=== PATIENT | male | born 1980 | race African-American/Black ===

== ENCOUNTER 2019-01-07 02:00 | Emergency (ER) | payer OTHER | END 2019-01-07 03:12 | disposition home or self-care (01) | LOC: JER 02:00 ==

== ENCOUNTER 2020-02-28 01:08 | Emergency (ER) | payer OTHER ==
[2020-02-28 01:28] VITALS: BP 119/62; PULSE 89; TEMP 98; BMI 32.1
--- NOTE | 2020-02-28 01:50 | PDOC ---
Attending Attestation - Resident Resident Name: Luciano Vital - ED Attending Attestation I have performed the following: I have examined & evaluated the patient, The case was reviewed & discussed with the resident, I agree w/resident's findings & plan - HPI HPI: 02/28/20 02:11 Pt injured right foot pain after he landed on it hard when he was going up the stairs; around 6PM. He was walking around barefoot in his home. Now with right foot pain lateral aspect. Pt was able to walk on it, but when he woke up, he found that he was unable to move the foot and that it was painful. wrapped it and placed a lidocaine patch on it. Pt comes because he fears that it is broken - Physicial Exam PE: 02/28/20 02:50 Pt has normal rest of exam. Agree with resident exam. Pt has swelling at the dorsal aspect of the right foot around the 3rd, 4th and 5th metatarsals.. {Pt has no pain with flexion of toes; some pain with extension of toes. Pain with inversion of the foot; no pain with eversion of th e foot. Pt has no plantar pain Pt has good pulses - Medical Decision Making 02/28/20 02:12 XRAY; collins dressing and home with crutches. Pt will follow with ortho as needed 02/28/20 02:52 Pt doesn't want crutches because he now knows that it isn;t broken. Pt feels he can walk on it. Discharge - Discharge Information Problems reviewed: Yes Clinical Impression/Diagnosis: Foot pain, right Condition: Stable Disposition: HOME - Follow up/Referral Referrals: Shady Roper DO [Staff Physician] - Roge Farmer DO [Staff Physician] - - Patient Discharge Instructions Patient Printed Discharge Instructions: DI for Foot Pain Additional Instructions: Please rest and ice your foot as much as possible. Please take Tylenol as needed for your pain (follow instructions on the package). Please make a follow up appointment with an orthopedist (Dr. Roper/Dr. Farmer, referral provided here). If you experience any new, worsening, or concerning symptoms, including worsening foot pain, swelling, numbness, tingling or any other concerns, please return to the emergency room. - Post Discharge Activity
--- NOTE | 2020-02-28 02:03 | PDOC ---
History of Present Illness - General Chief Complaint: Injury Stated Complaint: FOOT INJURY Time Seen by Provider: 02/28/20 01:44 - History of Present Illness Initial Comments: Davion Naranjo is a 39 y/o male with non contributory PMH presenting today after he tripped going up the stairs and hit the sole of his right foot on the edge of the steps at around 6pm earlier tonight. No fall/LOC/head trauma. Pt reports that he was able to ambulate and bear weight initially but a few hours later at around 9pm started feeling worsening pain with increased difficulty bearing weight. No numbness/tingling. No burning. No loss of sensation. His significant other wrapped up his leg with a lidoderm patch and an PHILLIP bandage. Past History - Medical History Allergies/Adverse Reactions: Allergies Allergy/AdvReac Type Severity Reaction Status Date / Time No Known Allergies Allergy Verified 02/28/20 01:28 Home Medications: Ambulatory Orders NK [No Known Home Medication] 06/12/16 COPD: No - Psycho-Social/Smoking History Smoking History: Current every day smoker Have you smoked in the past 12 months: Yes Information on smoking cessation initiated: No - Substance Abuse Hx (Audit-C & DAST Scrn) How often the patient has a drink containing alcohol: Monthly or less Score: In Men: 4 or > Positive; In Women: 3 or > Positive: 1 Screen Result (Pos requires Nsg. Audit-10AR): Negative Review of Systems - Review of Systems Comments:: GENERAL/CONSTITUTIONAL: No fever or chills. No weakness._ HEAD, EYES, EARS, NOSE AND THROAT: No change in vision. No change in hearing. No sore throat._ CARDIOVASCULAR: No chest pain or shortness of breath_ RESPIRATORY: Denies cough, hemoptysis_ GASTROINTESTINAL: No nausea, vomiting, diarrhea or constipation._ GENITOURINARY: No dysuria, frequency, or change in urination._ MUSCULOSKELETAL: Reports right foot pain. No neck or back pain._ SKIN: No rash_ NEUROLOGIC: No headache, vertigo, loss of consciousness, or change in strength/sensation._ ENDOCRINE: No increased thirst. No abnormal weight change_ HEMATOLOGIC/LYMPHATIC: No anemia, easy bleeding, or history of blood clots._ ALLERGIC/IMMUNOLOGIC: No hives or skin allergy._ *Physical Exam - Vital Signs Last Vital Signs Temp Pulse Resp BP Pulse Ox 98 F 89 18 119/62 98 02/28/20 01:25 02/28/20 01:25 02/28/20 01:25 02/28/20 01:25 02/28/20 01:25 - Physical Exam GENERAL: Awake, alert, and oriented to person/place/time, in no acute distress_ HEAD: No signs of trauma, normocephalic, atraumatic _ EYES: PERRLA, EOMI, sclera anicteric, conjunctiva clear_ ENT: Hearing grossly normal, nares patent, oropharynx clear without exudates. No uvular deviation. Moist mucosa_ NECK: Normal ROM, supple, no lymphadenopathy, JVD, or masses_ LUNGS: No distress, speaks in full sentences, clear to auscultation bilaterally _ HEART: Regular rate and rhythm, normal S1 and S2, no murmurs appreciated, peripheral pulses normal and equal bilaterally._ ABDOMEN: Soft, nontender, normoactive bowel sounds. No guarding, no rebound. No masses_ EXTREMITIES: Right medial and lateral mid foot TTP with no gross swelling or obvious deformity or ecchymosis. No medial or lateral malleolar TTP. Neurovascularly intact distally. Extremity exam normal inspection otherwise. NEUROLOGICAL: Cranial nerves II through XII grossly intact. Normal speech, no focal sensorimotor deficits _ SKIN: Warm, Dry, normal turgor, no rashes or lesions noted_ ED Treatment Course - RADIOLOGY Radiology Studies Ordered: Category Date Time Status ANKLE & FOOT-RIGHT* [RAD] Stat Radiology 02/28/20 02:01 Ordered Medical Decision Making - Medical Decision Making 02/28/20 02:03 39M non contributory PMH presenting today with pain over right medial and lateral mid foot. Able to bear weight initially but started having pain a few hours later. Took tylenol with moderate relief. Will obtain XR of the right foot and ankle. -XR right foot/ankle 02/28/20 02:49 XR right foot and ankle shows no acute fracture. Will apply PHILLIP bandage. Plan to d/c home with tylenol PRN for pain, ortho f/u, non weight bearing, rest, ice. All questions answered. Return precautions given. Pt verbalized understanding and agreement with plan. Discharge - Discharge Information Problems reviewed: Yes Clinical Impression/Diagnosis: Foot pain, right Condition: Stable Disposition: HOME - Admission No - Follow up/Referral Referrals: Shady Roper DO [Staff Physician] - Roge Farmer DO [Staff Physician] - - Patient Discharge Instructions Patient Printed Discharge Instructions: DI for Foot Pain Additional Instructions: Please rest and ice your foot as much as possible. Please take Tylenol as needed for your pain (follow instructions on the package). Please make a follow up appointment with an orthopedist (Dr. Roper/Dr. Farmer, referral provided here). If you experience any new, worsening, or concerning symptoms, including worsening foot pain, swelling, numbness, tingling or any other concerns, please return to the emergency room. - Post Discharge Activity
[2020-02-28] MEDS ORDERED: ACETAMINOPHEN 325 MG TABLET (FP) PO ONE (02:12)
[2020-02-28] MEDS ORDERED: ACETAMINOPHEN 325 MG TABLET (FP) ONE (02:21)
== END 2020-02-28 02:54 | disposition home or self-care (01) ==
LOC: JER 01:08
DX: M79.671 Pain in right foot (principal)
CPT/HCPCS: 73610-TC-RT-FY; 73630-TC-RT-FY; 99283-25